=== PATIENT | male | born 1990 | race Hispanic/Latino ===

== ENCOUNTER 2024-10-01 14:50 | Emergency (ER) | payer SELFPAY ==
[2024-10-01 14:54] VITALS: BP 132/79; PULSE 82; RESP 32; TEMP 36.9; O2SAT 100; BMI 24.8
--- NOTE | 2024-10-01 15:15 | EDS_ITS ---
HPI History of Present Illness Chief Complaint: Chest Pain Informant: patient Limited: language barrier Onset/Context/Timing Onset: Days (3) Activity at onset: gradual Timing: Continuous Location: Substernal and Right Chest Worsened By: Eating Relieved By: Nothing Associated Symptoms: Positive for Nausea, Diaphoresis, Dyspnea, Cough and Lightheadedness; Negative for Vomiting, Fever, Acid Reflux or Palpitations Narrative Narrative: Patient presents with chest and upper abdominal pain that has been getting worse over the past 3 days. Patient states his pain started in his right upper quadrant of his abdomen. Patient states that now it is going into his chest. Patient describes it as pressure. Patient states that his abdominal pain is worse with eating. Patient states nothing seems to help with his pain. Patient admits to some nausea but denies any vomiting. Patient admits to some diaphoresis. Patient mitts to a cough and shortness of breath. Patient also admits to some lightheadedness. Patient states he has been taking omeprazole with no improvement. Patient denies any fevers or chills. Patient states his pain does radiate into his back and neck. CVD Risk Factors: Negative for Hypertension, Diabetes, Hypercholesterolemia, Family History 1' </=55 or Smoking PE Risk Factors: Negative for Recent Travel/Surgery, Recent Immobilization, Prior DVT or PE, Cancer or OCP + Smoking + >/=35 PFSH PFSH Medical History Fatty (change of) liver, not elsewhere classified Home Medications ?Medication ?Instructions ?Recorded ?Last Taken ?Type hydrocodone-acetaminophen 5-325mg 1 tab PO Q6H PRN PRN Pain 3 days 10/01/24 Unknown Rx 5mg-325mg #10 TABLETS omeprazole 40 mg capsule,delayed 40 mg PO BID 10/01/24 Unknown History release Allergy/AdvReac Type Severity Reaction Status Date / Time No Known Allergies Allergy Verified 10/01/24 15:25 Surgical History no surgical history no surgical history Social History Smoking Status: Never smoker ROS ROS ED Constitutional Constitutional ED: Denies chills or fever(s) Eyes Eyes: Denies blurry vision ENT ENT ED: Denies rhinorrhea or sore throat Cardiovascular Cardiovascular: Reports chest pain; Denies palpitations Respiratory/Chest Respiratory/Chest: Reports cough and dyspnea Gastrointestinal Gastrointestinal: Reports constipation and nausea; Denies vomiting Genitourinary Genitourinary ED: Denies dysuria or hematuria Musculoskeletal Musculoskeletal: Reports back pain and neck pain Integumentary Denies abscess or rash Neurologic Neurologic: Denies headache(s) or weakness Hematologic/Lymphatic Hematologic/Lymphatic: Reports easy bruising Allergic/Immunologic Allergic/Immunologic ED: Denies mouth swelling or urticaria EXAM Physical Exam Const Vital Signs: 10/01/24 14:54 10/01/24 15:09 10/01/24 16:07 Temperature 98.4 F Temperature Source Oral Pulse Rate 82 70 Respiratory Rate 32 H 19 H Respiratory Effort Normal Non-Labored Blood Pressure 132/79 H 134/99 H Blood Pressure Mean 96 110 Pulse Ox 100 98 Oxygen Delivery Method Room Air Room Air 10/01/24 17:25 10/01/24 18:00 Temperature Temperature Source Pulse Rate 57 L 86 Respiratory Rate 17 16 Respiratory Effort Blood Pressure 117/81 H 134/76 H Blood Pressure Mean 93 95 Pulse Ox 100 100 Oxygen Delivery Method Room Air Room Air Positive well nourished and well developed General Appearance ED: well developed and NAD HEENT Reports moist mucous membranes Neck supple and no JVD Resp normal respiratory effort and clear to auscultation bilaterally Cardio regular rate and regular rhythm GI soft to palpation and non-distended GI Narrative: There is diffuse tenderness over the abdomen. It is worse over the right upper quadrant and epigastric area. There is no rebound. There is a positive Smith sign. There is no guarding noted. Extremity normal to inspection Neuro oriented x3, CN's II-XII intact bilaterally and no sensory deficits noted Sensorium / Orientation: awake and alert Motor Exam: strength 5/5 throughout Psych Mood & Affect: anxious Heart Score History: Slightly/Non-Suspicious ECG: Normal Age: </= 45 years Risk Factors: No Risk Factors Troponin: </= Normal Limit Score: 0 MDM MDM MDM Narrative Medical decision making narrative: Differential diagnosis includes cardiac dysrhythmia, cardiac ischemia, pancreatitis, gastroesophageal reflux disease, cholecystitis, cholelithiasis, electrolyte abnormality, aortic dissection, pulmonary embolism, bowel obstruction, perforation, and gastritis. EKG will be obtained to assess for cardiac dysrhythmia and cardiac ischemia. CTA of the chest will be obtained to assess for pulmonary embolism and aortic dissection. CT scan of the abdomen and pelvis will be obtained to assess for pancreatitis, bowel obstruction, perforation, cholecystitis, and cholelithiasis. CBC will be obtained to assess for leukocytosis and anemia. Comprehensive metabolic profile will be obtained to assess for hepatic function, renal function, and electrolyte abnormality. Lipase will be obtained to assess for pancreatitis. Urinalysis will be obtained to assess for urinary tract infection or hematuria. High-sensitivity troponin will be obtained to assess for cardiac ischemia. 2-hour repeat high-sensitivity troponin will be obtained to assess for ongoing cardiac ischemia. PT with INR and PTT will be obtained to assess for coagulopathy. History & Record Review Additional record(s) reviewed:: No prior records Lab Data Attestation: I reviewed the patient's lab results. Lab results narrative: CBC was reviewed and was within normal limits. Comprehensive metabolic profile was reviewed and was essentially within normal limits. Serum lactate was reviewed and was normal at 1.7. Initial high-sensitivity troponin was reviewed and was less than 6. Lipase was reviewed and was normal at 23. 2-hour repeat high-sensitivity troponin was reviewed and was also less than 6. Urinalysis was reviewed. There is no evidence of urinary tract infection or hematuria. Labs: Laboratory Results - last 24 hr 10/01/24 10/01/24 10/01/24 15:40 15:45 17:49 WBC 9.1 RBC 5.23 Hgb 15.6 Hct 43.4 MCV 83.0 MCH 29.8 MCHC 35.9 RDW Std Deviation 34.4 L RDW Coeff of Braden 11.3 L Plt Count 246 MPV 10.2 Immature Gran % (Auto) 0.200 Neut % (Auto) 78.2 H Lymph % (Auto) 15.7 L [place] % (Auto) 5.0 Eos % (Auto) 0.6 Baso % (Auto) 0.3 Absolute Neuts (auto) 7.1 Absolute Lymphs (auto) 1.43 Nucleated RBC % 0 PT 16.3 H INR 1.3 APTT 31.9 Sodium 139 Potassium 3.3 Chloride 101 Carbon Dioxide 21.5 Anion Gap 17 H BUN 15 Creatinine 0.77 Estim Creat Clear Calc 109.82 Est GFR (MDRD) Non-Af 121 BUN/Creatinine Ratio 19.0 Glucose 107 H Lactic Acid 1.7 Calcium 10.1 Total Bilirubin 0.89 Direct Bilirubin 0.32 H AST 35 ALT 37 Alkaline Phosphatase 78 Troponin T High Sens < 6 Troponin T Hi Sens 2 Hr < 6 Total Protein 7.5 Albumin 4.9 Globulin 2.6 Lipase 23 Urine Color Straw Urine Clarity Sl. Cloudy Urine pH 8.0 Ur Specific [place] 1.010 Urine Protein Negative Urine Glucose (UA) Normal Urine Ketones Negative Urine Occult Blood Negative Urine Nitrite Negative Urine Bilirubin Negative Urine Urobilinogen Normal Ur Leukocyte Esterase Negative Urine RBC 0-5 SEEN Urine WBC 0-5 SEEN Ur Squamous Epith Cells 0 SEEN Urine Bacteria 0 SEEN Urine Mucus 0 SEEN Radiography CTA PE Study: No Evidence of PE and No Evidence of Dissection Diagnostic Testing: Clinical Impression(s) from Imaging Studies Chest CTA 10/01/24 15:30 IMPRESSION: NORMAL CHEST CTA. NO EVIDENCE OF ACUTE PULMONARY EMBOLISM. Reading Location: [facility] Abdomen/Pelvis CT 10/01/24 15:33 IMPRESSION: No acute abdominopelvic finding. Reading Location: [facility] CTA of the chest was obtained. There is no evidence of pulmonary embolism or aortic dissection. There is no acute infiltrate. There is no acute cardiopulmonary process noted. This was interpreted by the radiologist and was also independently reviewed by myself. CT scan of the abdomen and pelvis was obtained. There is no acute abnormality noted. There is no free air or free fluid. There is no evidence of bowel obstruction or perforation. There is no evidence of cholecystitis and cholelithiasis. This was interpreted by the radiologist and was also independently reviewed by myself. EKG Initial EKG: Attestation: I personally reviewed and interpreted this EKG as follows: Interpretation: Sinus Rhythm (89), No Acute Injury Pattern and RBBB (Incomplete) Comments: EKG was obtained. On my independent interpretation, it showed a normal sinus rhythm with a rate of 89. OR interval, QRS interval, and QTc intervals were all normal. There is left axis deviation -84. There is an incomplete right bundle branch block pattern. There are no acute ST or T wave changes. Prior: No Prior Treatment and Re-Evaluation :: Patient was given IV fluids, morphine, and Zofran. Patient is feeling better on reevaluation. Patient was advised of his findings. Patient has a HEART score of 0. Patient was advised that this is low risk for acute cardiac event. Patient was given a prescription for a short course of Beeson. Patient was instructed to continue the omeprazole as previously prescribed. Patient was instructed to follow-up with his primary care physician in 5 to 7 days. Patient was instructed to return if worse in any way. Patient understood and was agreeable with the plan. All questions were answered. Discharge Plan Triage Chief Complaint: Chest Pain Other Complaint: Flank Pain ED Provider: Ricco Borges Dx/Rx/DC Orders Clinical Impression: Abdominal wall pain in right upper quadrant, Chest pain Instructions: ED Chest Pain, Uncertain Cause, ED Abdominal Pain Unkn Cause Male... Prescriptions: New hydrocodone-acetaminophen 5-325 mg tablet 1 tab PO Q6H PRN PRN (Reason: Pain) 3 Days Qty: 10 0RF No Action omeprazole 40 mg capsule,delayed release(DR/EC) 40 mg PO BID Primary Care Provider: Care Physician,No Primary Referrals: NOT,DEFINED [Non-Staff] - 5-7 Days Print Language: [place]i Disposition Disposition: Home, Self Care
--- NOTE | 2024-10-01 15:30 | CT_ITS ---
PROCEDURE: CTA CHEST W/WO CONTRAST 10/01/2024 REASON FOR EXAM: CHEST PAIN TECHNIQUE: CTA axial imaging of the chest with intravenous contrast. Coronal and Sagittal reconstruction series were provided. 3D, 3D post processing, 3D reconstructions, Maximum intensity projection (MIPs) Volume rendering and Shaded surface rendering was provided. PATIENT PREPARATION: Per protocol CONTRAST: Isovue 370 VOLUME: 100mL One or more dose reduction techniques were used (e.g., Automated exposure control, adjustment of the mA and/or kV according to patient size, use of iterative reconstruction technique). RADIATION DOSE SUMMARY: CTDlvol: 30 mGy DLP: 600 mGycm COMPARISON: None. FINDINGS: Hardware: None. Lymph nodes: No axillary, mediastinal or hilar lymphadenopathy. Heart: The heart is normal in size without pericardial effusion. The great vessels are normal in caliber. Pulmonary Vessels: No central filling defect in the segmental or subsegmental pulmonary arteries. Lungs and Airways: The central airways are patent. Tiny left lower lobe pulmonary nodule, likely noncalcified granuloma or scarring. No suspicious pulmonary nodule or mass. No pleural effusion or pneumothorax. Bones: Bone windows are unremarkable. CT/CTA Chest W/WO Contrast IMPRESSION: NORMAL CHEST CTA. NO EVIDENCE OF ACUTE PULMONARY EMBOLISM. Reading Location: [id number]
--- NOTE | 2024-10-01 15:30 | EKG12_ITS ---
Test Reason : CP Blood Pressure : */* mmHG Vent. Rate : 89 BPM Atrial Rate : 89 BPM P-R Int : 178 ms QRS Dur : 106 ms QT Int : 358 ms P-R-T Axes : 57 -84 53 degrees QTcB Int : 435 ms Normal sinus rhythm Left axis deviation Incomplete right bundle branch block Abnormal ECG No previous ECGs available Confirmed by ALEKSANDR CASAREZ, CLAYTON ([id number]), design editor LORRAINE OCASIO ([id number]) on 10/06/2024 7:28:03 AM Referred By: LONNIE/ELEUTERIO Confirmed By: CLAYTON BRANDON MD
--- NOTE | 2024-10-01 15:33 | CT_ITS ---
PROCEDURE: ABDOMEN/PELVIS WITH CONTRAST 10/01/2024 REASON FOR EXAM: ABDOMINAL PAIN TECHNIQUE: ABDOMEN/PELVIS WITH CONTRAST. Coronal and Sagittal reconstruction series were provided. ORAL CONTRAST: Yes CONTRAST: Isovue 370 VOLUME: 100 mL One or more dose reduction techniques were used (e.g., Automated exposure control, adjustment of the mA and/or kV according to patient size, use of iterative reconstruction technique. RADIATION DOSE SUMMARY: See CTA chest for discussion of radiation dosage. COMPARISON: Same day CTA chest. FINDINGS: Liver: The liver is normal in size without suspicious hepatic mass. The major portal veins are patent. No biliary ductal dilation. Gallbladder: No radiopaque stones within the gallbladder. Spleen: Unremarkable. Pancreas: Normal size without evidence of mass surrounding inflammation or ductal dilation. Adrenals: No adrenal mass. Kidneys: No hydronephrosis or nephrolithiasis. Bladder: Distended and unremarkable. Reproductive Organs: Unremarkable. Bowel: Oral contrast material within the stomach and small bowel. The bowel loops are normal in caliber. No ascites or pneumoperitoneum. Normal appendix. Lymph nodes: No suspicious lymph node enlargement. Vasculature: The abdominal aorta and IVC are normal. Bones: Unremarkable. CT/Abdomen/Pelvis WITH Contrast IMPRESSION: No acute abdominopelvic finding. Reading Location: [id number]
[2024-10-01] MEDS: 0.9% Normal Saline (1000mL) 1,000 ML 1000 ML IV (15:46)
[2024-10-01] MEDS: Ondansetron 4 MG/2 ML Vial IV (15:47)
[2024-10-01] MEDS: Morphine 4 MG/ML Syringe IV (15:47)
[2024-10-01 16:07] VITALS: BP 134/99; PULSE 70; RESP 19; O2SAT 98
[2024-10-01 16:26] LABS: Lactic Acid 1.7 mmol/L (0.0-2.0)
[2024-10-01 16:48] LABS: AST(SGOT) 35 U/L (<=37); Alanine Aminotransfer ALT/SGPT 37 U/L (<=46); Albumin, Serum 4.9 g/dL (3.5-5.0); Alkaline Phosphatase 78 U/L (40-129); Anion Gap 17 (5-15); BUN 15 mg/dL (4-19); Bilirubin, Direct 0.32 mg/dL (0.00-0.30); Calcium,Total 10.1 mg/dL (7.6-11.0); Carbon Dioxide 21.5 mmol/L (21.0-32.0); Chloride 101 mmol/L (98-108); Creatinine, Serum 0.77 mg/dL (0.70-1.20); EST Glomerular Filtration Rate 121 (>60); Estimated Creatinine Clearance 109.82 ml/min (50-250); Globulin 2.6 g/dL (2.2-4.2); Glucose 107 mg/dL (70-99); Lipase 23 U/L (13-75); Potassium 3.3 mmol/L (3.3-5.1); Protein, Total 7.5 g/dL (5.9-8.4); Sodium Level 139 mmol/L (133-145); Total Bilirubin 0.89 mg/dL (0.00-1.30); Troponin T High Sensitivity < 6 ng/L (<=22)
[2024-10-01 16:54] LABS: Absolute Lymphocyte Count 1.43 X10^3/uL (0.83-4.51); Absolute Neutrophil Count 7.1 X10^3/uL (2.0-7.7); Basophil# 0.03 X10^3/uL; Basophil% 0.3 % (0-1); Eosinophil# 0.05 X10^3/uL; Eosinophils% 0.6 % (0-5); Hematocrit 43.4 % (40-54); Hemoglobin 15.6 g/dL (13.0-16.5); Lymphocyte # 1.43 X10^3/ul (0.83-4.51); Lymphocyte % 15.7 % (19-41); Mean Corp Hgb Conc 35.9 g/dL (32-36); Mean Corpuscular Hgb 29.8 pg (27.0-32.0); Mean Platelet Vol. 10.2 fl (6.2-12.0); Monocyte# 0.45 X10^3/uL; NRBC Flagged by Analyzer 0 % (0-5); Neutrophil % 78.2 % (47-70); Platelet Count 246 K/mm3 (150-450); RBC Distribution Width CV 11.3 % (11.6-14.6); RBC Distribution Width SD 34.4 fl (35.1-43.9); Red Blood Count 5.23 M/mm3 (4.6-6.2); White Blood Count 9.1 K/mm3 (4.4-11.0)
[2024-10-01 17:07] LABS: International Normalized Ratio 1.3; Partial Thromboplast Time 31.9 Seconds (24.1-36.2); Prothrombin Time (Protime)PT. 16.3 SECONDS (11.7-14.9)
[2024-10-01 17:11] LABS: Bacteria 0 SEEN /hpf (None Seen); Mucous, Urine 0 SEEN /hpf (<or=2+); Squamous Epithelial Cells - UA 0 SEEN /hpf (0-5)
[2024-10-01 17:18] LABS: Color, Urine Straw (Yellow); Glucose, Dipstick Normal (Normal); Ketone-Dipstick Negative (Negative); Leukocyte Esterase-Dipstick Negative /ul (Negative); Nitrite-Dipstick Negative (Negative); Occult Blood-Urine Negative /ul (Negative); Protein-Dipstick Negative (Negative); Urine Bilirubin Dipstick Negative (Negative); Urine Clarity Sl. Cloudy (Clear); Urine Urobilinogen Normal (Normal)
[2024-10-01 17:25] VITALS: BP 117/81; PULSE 57; RESP 17; O2SAT 100
[2024-10-01 18:00] VITALS: BP 134/76; PULSE 86; RESP 16; O2SAT 100
[2024-10-01 18:02] LABS: Red Blood Cells-Urine 0-5 SEEN /hpf (0-5); White Blood Cells 0-5 SEEN /hpf (0-5)
[2024-10-01 18:21] LABS: Troponin T High Sens 2 HR < 6 ng/L (<=22)
[2024-10-01 19:00] VITALS: BP 134/76
[2024-10-01 19:38] VITALS: BP 134/76; PULSE 86; RESP 16; TEMP 36.9; O2SAT 100
== END 2024-10-01 19:39 | disposition home or self-care (01) ==
PROVIDERS: Emergency Provider Emergency Medicine; Visit Provider Emergency Medicine
DX: R07.9 Chest pain, unspecified (principal); R11.0 Nausea; R10.11 Right upper quadrant pain; R06.02 Shortness of breath; R05.9 Cough, unspecified; K59.00 Constipation, unspecified
CPT/HCPCS: 71275; 74177; 80048; 80076; 81001; 83605; 83690; 84484; 85025; 85610; 85730; 93005; 96361; 96374; 96375; 99285; Q9967; J2405